=== PATIENT | female | born 1965 | race Caucasian/White ===

== ENCOUNTER 2019-08-31 20:32 | Emergency (ER) | payer OTHER ==
[~2019-08-31] VITALS: Ht 170.2 cm; Wt 69.4 kg
[2019-08-31 20:46] LABS: URINE BILIRUBIN NEGATIVE (Negative); URINE BLOOD TRACE (Negative); URINE CLARITY CLEAR; URINE COLOR YELLOW; URINE GLUCOSE-RANDOM NEGATIVE (Negative); URINE KETONES TRACE (Negative); URINE LEUKOCYTES-REFLEX NEGATIVE (Negative); URINE NITRITE-REFLEX NEGATIVE (Negative); URINE PROTEIN NEGATIVE (Negative); URINE SPECIFIC GRAVITY 1.015 (1.005-1.030); URINE UROBILINOGEN 0.2 E.U./dl (0.2-1.0)
[2019-08-31 20:55] LABS: AMP/METHAMP Negative (Negative); BARBITURATES Negative (Negative); BENZODIAZEPINES Negative (Negative); COCAINE Negative (Negative); METHADONE Negative (Negative); OPIATES Negative (Negative); PCP Negative (Negative); THC Negative (Negative)
[2019-08-31 20:57] LABS: ABSOLUTE BASOPHILS 0.1 thou/uL (0.0-0.2); ABSOLUTE EOSINOPHILS 0.2 thou/uL (0.0-0.7); ABSOLUTE LYMPHOCYTES 2.6 thou/uL (0.8-5.3); ABSOLUTE MONOCYTES 0.5 thou/uL (0.0-1.2); ABSOLUTE NEUTROPHILS 3.1 thou/uL (1.6-8.1); BASOPHILS 0.9 %; EOSINOPHILS 3.7 %; HEMATOCRIT 38.6 % (37.0-47.0); HEMOGLOBIN 13.1 gm/dL (12.0-15.0); LYMPHOCYTES 40.5 %; MCH 29.3 pg (26.0-34.0); MCHC 33.8 g/dL (28.0-37.0); MCV 86.7 fL (80.0-100.0); MONOCYTES 8.1 %; MPV 7.7 fl. (7.2-11.1); NUCLEATED RBCS 0 /100WBC; PLATELET COUNT* 274 thou/uL (150-400); POLYS 46.8 %; RBC 4.45 mil/uL (4.20-5.00); RDW-CV 13.8 % (10.5-14.5); WBC 6.5 thou/uL (4.0-11.0)
[2019-08-31 21:05] LABS: CALCIUM 8.6 mg/dL (8.5-10.1); CREATININE 1.2 mg/dL (0.6-1.3); POTASSIUM 3.3 mmol/L (3.5-5.1)
[2019-08-31 21:06] LABS: PROTIME 10.6 Seconds (9.20-11.50)
[2019-08-31 21:15] LABS: ALBUMIN 3.9 g/dL (3.4-5.0); MAGNESIUM 2.1 mg/dL (1.8-2.4); TOTAL BILIRUBIN 0.4 mg/dL (<0.1-1.0); TOTAL PROTEIN 6.9 g/dL (6.4-8.2)
[2019-08-31 21:33] LABS: SALICYLATE < 2.8 mg/dL (2.8-20.0)
[2019-08-31 21:34] LABS: ACETAMINOPHEN < 2 ug/mL (10-30)
[2019-08-31 21:58] VITALS: BP 158/81
--- NOTE | 2019-09-01 09:11 | EKG ---
[place] [address] ELECTROCARDIOGRAM REPORT Name: FUNMI DONALDSON Room: [facility]#: [id number] Admission: 08/31/19 Attend Phys: Discharge: 08/31/19 Date of : 63 Date of Service: 08/31/192126 Report #: [id number] THIS REPORT FOR: //name// [facility] ED Test Date: 2019-08-31 Test Time: 21:27:18 Pat Name: FUNMI DONALDSON Department: Room: Gender: Electrocardiogram Technician: [facility] : 1965 Requested By: Bernice Luciano Order Number: [id number] MD: Calderon Major Measurements Intervals [place] Rate: 48 P: 42 [place]: 185 QRS: 42 QRSD: 89 T: 60 QT: 476 QTc: 426 Interpretive Statements Sinus bradycardia No previous ECG available for comparison Electronically Signed On 09-01-2019 9:10:40 CDT by Calderon Major [email or web address] <ELECTRONICALLY SIGNED> By: Calderon Major MD, [facility] 09/01/19909 26 26 Calderon Major MD, FACC /EPI
[2019-09-01 23:06] LABS: HEPATITIS B SURFACE AG Negative (Negative)
== END 2019-08-31 21:58 | disposition short-term general hospital (02) ==
LOC: M.ERS 20:32
PROVIDERS: Emergency Medicine
DX: I62.9 Nontraumatic intracranial hemorrhage, unspecified (principal); R41.82 Altered mental status, unspecified